=== PATIENT | male | born 1950 | race Asian ===

== ENCOUNTER 2018-07-16 20:36 | Emergency (ER) | payer OTHER ==
[~2018-07-16] VITALS: Ht 185.4 cm; Wt 79.4 kg
[2018-07-16 20:49] VITALS: TEMP 98.2
[2018-07-16] MEDS ORDERED: SYMBICORT1 AE1 INH (20:57)
[2018-07-16] MEDS ORDERED: PRAVACHOL80 MG PO (20:58)
[2018-07-16] MEDS ORDERED: LOSA50TA PO (20:58)
[2018-07-16] MEDS ORDERED: DILT-XR120 MG PO (20:59)
[2018-07-16] MEDS ORDERED: TAMS0.4C PO (21:00)
[2018-07-16 21:50] LABS: PLATELET COUNT 197 K/uL (142-355)
[2018-07-16 21:59] LABS: POTASSIUM 4.3 mmol/L (3.6-5.2)
[2018-07-16 22:34] VITALS: BP 136/75
== END 2018-07-16 22:36 | disposition home or self-care (01) ==
LOC: ED 20:36
PROVIDERS: Family Medicine
DX: I10 Essential (primary) hypertension (principal)
CPT/HCPCS: 36415; 80053; 85027; 99284

== ENCOUNTER 2021-09-29 14:43 | Emergency (ER) | payer OTHER ==
[~2021-09-29] VITALS: Ht 185.4 cm; Wt 79.4 kg
[~2021-09-29 14:43] MED LIST: DILT-XR120 MG PO; LOSA50TA PO; PRAVACHOL80 MG PO; SYMBICORT1 AE1 INH; TAMS0.4C PO
[2021-09-29 14:57] VITALS: TEMP 98.9
[2021-09-29 15:43] LABS: PLATELET COUNT 229 K/uL (142-355)
[2021-09-29 15:49] LABS: POTASSIUM 3.7 mmol/L (3.6-5.2)
[2021-09-29 16:30] VITALS: BP 137/85
== END 2021-09-29 16:43 | disposition home or self-care (01) ==
LOC: ED 14:43
PROVIDERS: Emergency Medicine
DX: R00.2 Palpitations (principal)
CPT/HCPCS: 80048; 84484; 85027; 93005; 99283

== ENCOUNTER 2022-05-26 12:00 | Outpatient (CLI) | payer OTHER | END 2022-05-26 18:58 | disposition home or self-care (01) | LOC: RAD 12:00 | PROVIDERS: ATTEND Internal Medicine | DX: M16.0 Bilateral primary osteoarthritis of hip (principal); M51.37 Other intervertebral disc degeneration, lumbosacral region ==